=== PATIENT | female | born 1970 | race African-American/Black ===

== ENCOUNTER 2022-11-23 13:55 | Emergency (ER) | payer SELFPAY ==
[2022-11-23 14:31] VITALS: RESP 18
--- NOTE | 2022-11-23 14:43 | ED ---
General Adult HPI - General Chief complaint: Extremity Injury, Upper Stated complaint: Scared Heart sent for xrays Time Seen by Provider: 11/23/22 14:34 Source: patient, RN notes reviewed Mode of arrival: ambulatory - History of Present Illness Initial comments: 52-year-old female presents to the emergency department with chief complaint of left wrist pain. Patient states that it started 2 weeks ago when her partner fell on it. The mechanism of injury is not very clear. She states that she has been taking aspirin for pain which does not help. She reports some numbness in the distal radius. Patient reports normal sensation in all 5 digits. Patient is able to move at the fingers. Range of motion at the wrist is limited. - Related Data Allergies Allergy/AdvReac Type Severity Reaction Status Date / Time Penicillins Allergy Rash/Hives Verified 11/23/22 14:56 Review of Systems ROS Statement: Those systems with pertinent positive or pertinent negative responses have been documented in the HPI. ROS Other: All systems not noted in ROS Statement are negative. Past Medical History Past Medical History: No Reported History History of Any Multi-Drug Resistant Organisms: None Reported Past Surgical History: No Surgical Hx Reported Past Psychological History: No Psychological Hx Reported Smoking Status: Current every day smoker Past Alcohol Use History: Daily, Heavy Past Drug Use History: Cocaine, Marijuana General Exam Limitations: no limitations General appearance: alert, in no apparent distress Head exam: Present: atraumatic, normocephalic, normal inspection Eye exam: Present: normal appearance, PERRL, EOMI. Absent: scleral icterus, conjunctival injection, periorbital swelling ENT exam: Present: normal exam, mucous membranes moist Neck exam: Present: normal inspection. Absent: tenderness, meningismus, lymphadenopathy Respiratory exam: Present: normal lung sounds bilaterally. Absent: respiratory distress, wheezes, rales, rhonchi, stridor Cardiovascular Exam: Present: regular rate, normal rhythm, normal heart sounds. Absent: systolic murmur, diastolic murmur, rubs, gallop, clicks Extremities exam: Present: other (Left wrist swelling at the radial aspect, decreased range of motion, sensation intact, radial pulses 2+, normal capillary refill) Back exam: Present: normal inspection Neurological exam: Present: alert, oriented X3 Psychiatric exam: Present: normal affect, normal mood Skin exam: Present: warm, dry, intact, normal color. Absent: rash Course Vital Signs 11/23/22 11/23/22 11/23/22 14:26 15:23 16:20 Temperature 98.5 F 98 F 97.9 F Pulse Rate 98 84 86 Respiratory 18 18 18 Rate Blood Pressure 140/92 134/86 137/84 O2 Sat by Pulse 100 98 99 Oximetry Medical Decision Making - Medical Decision Making Was pt. sent in by a medical professional or institution (, [facility], COMM[employer]S [employer], urgent care, hospital, or group home...) When possible be specific @ -She sent in by [facility] Did you speak to anyone other than the patient for history (EMS, parent, family, police, friend...)? What history was obtained from this source @ -No Did you review nursing and triage notes (agree or disagree)? Why? @ -I reviewed and agree with nursing and triage notes Were old charts reviewed (outside hosp., previous admission, EMS record, old EKG, old radiological studies, urgent care reports/EKG's, group home records)? Report findings @ -No old charts were reviewed Differential Diagnosis (chest pain, altered mental status, abdominal pain women, abdominal pain men, vaginal bleeding, weakness, fever, dyspnea, syncope, headache, dizziness, GI bleed, back pain, seizure, CVA, palpatations, mental health, musculoskeletal)? @ -Differential Musculoskeletal Muscular strain, contusion, ligament sprain, fracture, arthritis, septic arthritis, bursitis, cellulitis, muscle spasm, nerve compression, DVT, arterial occlusion, herpes zoster, electrolyte abnormality, tumor.... This is not meant to be in all inclusive list EKG interpreted by me (3pts min.). @ -None X-rays interpreted by me (1pt min.). @ -X-ray of the left wrist interpreted by me showed oblique fracture of the distal radius CT interpreted by me (1pt min.). @ -None done U/S interpreted by me (1pt. min.). @ -None done What testing was considered but not performed or refused? (CT, X-rays, U/S, labs)? Why? @ -None What meds were considered but not given or refused? Why? @ -None Did you discuss the management of the patient with other professionals (professionals i.e. , [facility], COMM[employer]ER, lab, RT, psych nurse, social work professor, fire protection engineering technician, teacher, school resource officer, telephonic nurse case manager)? Give summary @ -No Was smoking cessation discussed for >3mins.? @ -No Was critical care preformed (if so, how long)? @ -No Were there social determinants of health that impacted care today? How? (Homelessness, low income, unemployed, alcoholism, drug addiction, transportation, low edu. Level, literacy, decrease access to med. care, long term, rehab)? @ -No Was there de-escalation of care discussed even if they declined (Discuss DNR or withdrawal of care, Hospice)? DNR status @ -No What co-morbidities impacted this encounter? (DM, HTN, Smoking, COPD, CAD, Cancer, CVA, ARF, Chemo, Hep., AIDS, mental health diagnosis, sleep apnea, morbid obesity)? @ -None Was patient admitted / discharged? Hospital course, mention meds given and route, prescriptions, significant lab abnormalities, going to OR and other pertinent info. @ -Discharged. Patient presented to emergency department with chief complaint of left wrist pain following an injury that occurred 2 weeks ago which had not been evaluated yet. Patient is neurovascularly intact on examination. X-ray of the left wrist showed an oblique fracture of the distal radius. She was administered Tylenol before discharge. Patient was put in a forearm volar splint and advised to follow-up with orthopedics within the next couple of days. Patient discharged in stable condition. Case discussed with my attending, Dr. Queen Undiagnosed new problem with uncertain prognosis? @ -No Drug Therapy requiring intensive monitoring for toxicity (Heparin, Nitro, In sulin, Cardizem)? @ -No Were any procedures done? @ -No Diagnosis/symptom? @ -Distal radius fracture Acute, or Chronic, or Acute on Chronic? @ -Acute Uncomplicated (without systemic symptoms) or Complicated (systemic symptoms)? @ -uncomplicated Side effects of treatment? @ -No Exacerbation, Progression, or Severe Exacerbation? @ -No Poses a threat to life or bodily function? How? (Chest pain, [place], [place], pneumonia, PE, COPD, DKA, ARF, appy, cholecystitis, CVA, Diverticulitis, Homicidal, Suicidal, threat to staff... and all critical care pts) @ -No Disposition Clinical Impression: Fracture of wrist Disposition: HOME SELF-CARE Condition: Stable Instructions (If sedation given, give patient instructions): Wrist Injury (ED) Additional Instructions: Please follow up with orthopedics in the next 1-2 days. Please return to the Emergency Department if symptoms worsen or any other concerns. Is patient prescribed a controlled substance at d/c from ED?: No Referrals: None,Stated [Primary Care Provider] - 1-2 days Rimma Rollins DO [Doctor of Osteopathic Medicine] - 1-2 days Time of Disposition: 16:06
--- NOTE | 2022-11-23 15:05 | XR ---
EXAMINATION TYPE: XR wrist complete LT DATE OF EXAM: 11/23/2022 COMPARISON: None HISTORY: Pain TECHNIQUE: 3 view left wrist FINDINGS: There is an oblique fracture through the metaphyseal radius. Mild soft tissue swelling is p resent. No additional fractures are evident. There is pain at the anatomic snuff box, consider follow-up MRI. This could also evaluate soft tissue injury if clinically indicated. IMPRESSION: 1. Oblique fracture distal diaphyseal radius. 2. Soft tissue swelling
[2022-11-23] MEDS ORDERED: ACETAMINOPHEN TAB 325 MG TAB PO STA (16:04)
[2022-11-23 16:22] VITALS: BP 137/84; PULSE 86; TEMP 97.9
== END 2022-11-23 16:22 | disposition home or self-care (01) ==
LOC: EC 13:55
DX: S52.502A Unspecified fracture of the lower end of left radius, initial encounter for closed fracture (principal); F17.200 Nicotine dependence, unspecified, uncomplicated; F12.90 Cannabis use, unspecified, uncomplicated; F14.10 Cocaine abuse, uncomplicated; Z88.0 Allergy status to penicillin; X58.XXXA Exposure to other specified factors, initial encounter
CPT/HCPCS: 29125; 99283